=== PATIENT | female | born 1960 | race Caucasian/White ===

== ENCOUNTER 2025-03-10 10:11 | Outpatient (AMB) | payer BC, SELFPAY ==
--- NOTE | 2025-03-10 10:23 | A.OFFPC_ITS ---
Vital Signs 03/10/25 10:25 Height 5 ft 4 in Weight 207 lb BMI 35.5 BP 124/76 Blood Pressure Location Rt brachial Position Sitting Respiration 14 Pulse 76 Pulse Source Pulse Oximeter Pulse Oximetry (%) 97 Oxygen Delivery Method Room Air Intake Visit Reasons: Weight loss and Edema Intake Note: New patient visit. Discuss weight loss and edema in both ankles. Neurobiologist Required: No Allergies sumatriptan [From Imitrex] Allergy (Intermediate, Verified 03/10/25 10:27) vomitted Medication List - Last Reconciled 03/10/25 by Dolores Galicia PA-C allopurinol 200 mg PO DAILY B-complex with vitamin C 1 cap PO DAILY colchicine mg PO conjugated estrogens (Premarin) 0.625 mg PO DAILY lisinopril 10 mg PO DAILY [mini fish oil 1290 PO] multivitamin 1 tab PO DAILY vitamin D3-vitamin K2 250 mcg (10,000 unit)-45 mcg 1 cap PO DAILY Tobacco use date assessed: 03/10/25 Fall risk assessment: No Falls in past year Last assessed Fall Risk: 03/10/25 Dental Screening Dental Screen Date: 03/10/25 Did you have a dental visit in the last 12 months?: No Did you have a dental problem in the last 6 months where you did not have access to dental care?: No Was dental information given to patient?: Patient has dentist HPI Weight loss and Edema HPI Details Patient is a 64-year-old female who presents today to establish care. She is transferring from [facility] where she previously saw me. No notes available today. She has a history of hypertension, prediabetes, CKD, kidney stones, anemia, gout, obesity. CV: Blood pressure today in the office is 124/76. She is on lisinopril 10 mg daily. She uses furosemide as needed for swelling. States that cholesterol has been diet controlled. Last LDL at [facility] was 103. Endo: Last labs showed A1c of 5.7. Heme: Follows with Dr. Ac for anemia. Nephro: She did see nephrology, Dr. Avery, following an maria g from being on keto diet and possibly due to stones. Urology: hx of stones, has not seen urology in over 30 years. Psych: Was trialed on trazodone in the past to see if that would help with insomnia which she felt was related to her menopause. Mammo: UTD General Internal Medicine Physician: UTD Bone density: was normal 3 years ago Colonoscopy: completed 2020-due in 2030 [facility] Medical History (Updated 03/10/25 @ 11:08 by Dolores Galicia PA-C) Umbilical hernia Surgical History (Updated 03/10/25 @ 10:47 by Rosy Lopes CMA) Hx of cholecystectomy Family History (Updated 03/10/25 @ 10:49 by Rosy Lopes CMA) Mother HTN (hypertension) Father HTN (hypertension) Maternal Grandmother Diabetes Social History Housing: House Alcohol intake: current Patient Tobacco Use Status: Never used Tobacco e-Cigarette/Vaping Use: Never Used Second Hand Smoke Exposure: No service: No Current occupational status: retired Cognitive needs: No Hearing needs: No Vision needs: No Questionnaire PHQ-9 Over the last 2 weeks, how often have you been bothered by any of the following problems? 1. Little interest or pleasure in doing things: not at all 2. Feeling down, depressed, or hopeless: not at all 3. Trouble falling or staying asleep, or sleeping too much: nearly every day 4. Feeling tired or having little energy: more than half the days 5. Poor appetite or overeating: nearly every day 6. Feeling bad about yourself - or that you are a failure or have let yourself or your family down: nearly every day 7. Trouble concentrating on things, such as reading the newspaper or watching television: not at all 8. Moving or speaking so slowly that other people could have noticed. Or the opposite - being so fidgety or restless that you have been moving around a lot more than usual: not at all 9. Thoughts that you would be better off or of hurting yourself in some way: not at all Total score: 11 Depression Screening Interpretation: Positive Depression Screening Done: Yes Source: Developed by Drs. Edgardo Hough, Whit Diaz, David Amos and colleagues, with an educational allison from [employer]. Thrive Questionnaire Date Thrive assessed: 03/03/25 I am a: Patient What is your living situation today?: I have a steady place to live Within the past 12 months, did the food you bought not last and you didn't have the money to get more?: Never true Within the past 12 months, did you worry whether your food would run out before you got money to buy more?: Never true Do you have trouble paying for medicines?: No Do you have trouble getting transportation to medical appointments?: Yes Do you have trouble paying your heating and electricity bill?: No Do you have trouble taking care of your child, family member or friend?: No Do you have trouble with day-to-day activities such as bathing, preparing meals, shopping, managing finances, etc.?: No Are you currently unemployed and looking for a job?: No Are you interested in more education?: Yes Please select the resources that you would like help with: None Currently or been in a relationship where the following occur: No concerns reported THRIVE Score: 1 AUDIT C Alcohol Use Questionnaire (AUDIT-C) 1. How often do you have a drink containing alcohol?: Monthly or less 2. How many drinks containing alcohol do you have on a typical day when you are drinking?: 1 or 2 3. How often do you have six or more drinks on one occasion?: Never Total Score: 1 BAKARI-7 AMB Questionnaire BAKARI-7 Date BAKARI - 7 assessed: 03/10/25 Feeling nervous, anxious, or on edge: 0 = Not at all Not being able to stop or control worryin = Not at all Worrying too much about different things: 0 = Not at all Trouble relaxin = Not at all Being so restless that it is hard to sit still: 0 = Not at all Becoming easily annoyed or irritable: 2 = More than half the days Feeling afraid as if something awful might happen: 0 = Not at all Total BAKARI-7 score (0-4 normal; 5-9 mild; 10-14 moderate; 15-21 severe): 2 Source: Developed by Drs. Edgardo Hough, Whit Diaz, David Amos and colleagues, with an educational allison from [employer]. BAKARI-7 Assessment Billing BAKARI-7 Assessment Tool: BAKARI-7 Assessment 05331 Physical exam (Primary Care) BMI result Body Mass Index 35.5 PHQ-9: PHQ-9 Score PHQ-9: Total score 11 03/10/25 10:24 Depression Screening Interpretation: Positive Thrive Assessment: Date of Thrive Assessment Date Thrive assessed 03/03/25 03/10/25 10:24 Currently or been in a relationship where the following occur: No concerns reported Const Orientation/consciousness: patient oriented x3 HENMT Ears: hearing grossly normal bilaterally Neck Thyroid: Thyroid normal Lymphatic: no lymphadenopathy noted Resp Auscultation: clear to auscultation bilaterally Cardio Rate: regular rate Rhythm: regular rhythm Heart sounds: S1 normal heart sound present and S2 normal heart sound present GI Inspection: Yes normal to inspection Palpation (GI): Soft to palpation and Other GI palpation findings present (nontender, no cva tenderness) Auscultation: normoactive bowel sounds Rectal Exam - Female: deferred Skin General skin exam: no rashes or lesions noted Neuro General: patient oriented x3, gait normal and no focal motor deficits Coding Level of Care Code Est Pt Level 4 (59793) Complex EM visit Add On G2211 Diagnoses CKD (chronic kidney disease) stage 3, GFR 30-59 ml/min N18.30 HTN (hypertension) I10 Prediabetes R73.03 Hx of renal calculi Z87.442 Severe obesity (BMI 35.0-35.9 with comorbidity) E66.01; Z68.35 Additional Codes BAKARI-7 Assessment Billing - BAKARI-7 Assessment Tool: BAKARI-7 Assessment 34900 ([id number]) Assessment & Plan Assessment & Plan (1) CKD (chronic kidney disease) stage 3, GFR 30-59 ml/min: Code(s): N18.30 - Chronic kidney disease, stage 3 unspecified Category: Medical Plan: Referral to nephrology. She wants a 2nd opinion. (2) HTN (hypertension): Code(s): I10 - Essential (primary) hypertension Category: Medical Plan: WNL. Continue current regimen. (3) Prediabetes: Code(s): R73.03 - Prediabetes Category: Medical Plan: A1c ordered. We will follow up pending test results (4) Hx of renal calculi: Code(s): Z87.442 - Personal history of urinary calculi Category: Medical Plan: Ultrasound ordered. UA ordered. (5) Severe obesity (BMI 35.0-35.9 with comorbidity): Code(s): E66.01 - Morbid (severe) obesity due to excess calories; Z68.35 - Body mass index [BMI] 35.0-35.9, adult Category: Medical Plan: will start phentermine Orders: Orders Vitamin B12 and Folate Today I10 - Essential (primary) hypertension, N18.30 - Chronic kidney disease, stage 3 unspecified, R73.03 - Prediabetes, Z87.442 - Personal history of urinary calculi Hemoglobin A1c Today I10 - Essential (primary) hypertension, N18.30 - Chronic kidney disease, stage 3 unspecified, R73.01 - Impaired fasting glucose, R73.03 - Prediabetes, Z87.442 - Personal history of urinary calculi XR DEXA axial skeleton Today Z78.0 - Asymptomatic menopausal state US renal BI Today N18.30 - Chronic kidney disease, stage 3 unspecified, Z87.442 - Personal history of urinary calculi Complete Blood Count Auto Diff Today I10 - Essential (primary) hypertension, N18.30 - Chronic kidney disease, stage 3 unspecified, R73.03 - Prediabetes, Z87.442 - Personal history of urinary calculi Comprehensive Sandy. Panel Fast Today I10 - Essential (primary) hypertension, N18.30 - Chronic kidney disease, stage 3 unspecified, R73.03 - Prediabetes, Z87. 442 - Personal history of urinary calculi Lipid Panel Today I10 - Essential (primary) hypertension, N18.30 - Chronic kidney disease, stage 3 unspecified, R73.03 - Prediabetes, Z87.442 - Personal history of urinary calculi UA CC w/rflx Micro + Cult Today I10 - Essential (primary) hypertension, N18.30 - Chronic kidney disease, stage 3 unspecified, R73.03 - Prediabetes, Z13.220 - Encounter for screening for lipoid disorders, Z87.442 - Personal history of urinary calculi TSH reflex Free T4 Today I10 - Essential (primary) hypertension, N18.30 - Chronic kidney disease, stage 3 unspecified, R73.03 - Prediabetes, Z87.442 - Personal history of urinary calculi Microalbumin, Random (w Creat) Today I10 - Essential (primary) hypertension, N18.30 - Chronic kidney disease, stage 3 unspecified, R73.03 - Prediabetes, Z87.442 - Personal history of urinary calculi Referrals Nephrology Referral N18.30 - Chronic kidney disease, stage 3 unspecified, Z87.442 - Personal history of urinary calculi Medications: New lisinopril 10 mg PO DAILY 90 tabs 3RF phentermine must administer 2 hours after breakfast 15 mg PO DAILY 30 caps 5RF furosemide 20 mg PO Q OTHER DAY 30 tabs 5RF
[2025-03-10 10:25] VITALS: BP 124/76; PULSE 76; RESP 14; O2SAT 97; BMI 35.5
--- OUTSIDE RECORDS SUMMARY | 2025-03-10 10:38 | XMS_ITS ---
Author Organization [facility] Address [address] [address] Care Team Providers Care Forming Yardage Control Operator Name Role Phone Lissette Stevens Primary Care Provider CRUZ De La Cruz [phone] REASON FOR VISIT eClinicalMobile: ePrescription Medications Medication SIG (Take, Route, Fr equency, Duration) Notes Start Date End Date Status Allopurinol 300 MG TAKE 1 TABLET BY MARIE TH EVERY DAY FOR 30 DAYS for 90 Active Encounters Encounter Location Date Provider Diagnosis [facility] [address] [address] 12/25/2023 CRUZ DWYER Plan Of Treatment Medication Medication Name Sig Start Date Stop Date Notes Allopurinol 300 MG TAKE 1 TABLET BY MARIE TH EVERY DAY FOR 30 DAYS for 90 Progress Notes * IFEANYILisethJimboOB: (63 yo F)Acc No.[id number]:12/25/2023 Patient:?Aster SUGGS :1960???Age:63 Y???Sex:Female Address:[address] [facility] [place] [address] * Refills? Refill Allopurinol Tablet, 300 MG, 90 Tablet, TAKE 1 TABLET BY MOUTH EVERY DAY FOR 30 DAYS, 90, Refills=0 * true * Date:? Generated for Aleciai denis/Fataylerg/eTransmitting on:?03/10/2025 10:38 AM EDT
--- OUTSIDE RECORDS SUMMARY | 2025-03-10 10:38 | XMS_ITS ---
Author Organization [facility] Address [address] [address] Care Team Providers Care Candy Starch Mold Printer Name Role Phone Lissette Stevens Primary Care Provider CRUZ De La Cruz [phone] REASON FOR VISIT refill request Medications Medication SIG (Take, Route, Fr equency, Duration) Notes Start Date End Date Status Allopurinol 300 MG TAKE 1 TABLET BY MARIE TH EVERY DAY Orally Once a day for 90 days Ac tive Encounters Encounter Location Date Provider Diagnosis [facility] [address] [address] 01/20/2024 CRUZ DWYER Plan Of Treatment Medication Medication Name Sig Start Date Stop Date Notes Allopurinol 300 MG TAKE 1 TABLET BY MARIE TH EVERY DAY Orally Once a day for 90 days Progress Notes * Liseth SUGGSJimboOB: (63 yo F)Acc No.[id number]:01/20/2024 Patient:?Aster SUGGS :1960???Age:63 Y???Sex:Female Address:[place] [address] * Refills? Refill Allopurinol Tablet, 300 MG, Orally, 90, TAKE 1 TABLET BY MOUTH EVERY DAY, Once a day, 90 days, Refills=1 * true * Date:? Generated for Aleciai denis/Jenniferg/eTransmitting on:?03/10/2025 10:37 AM EDT
--- OUTSIDE RECORDS SUMMARY | 2025-03-10 10:38 | XMS_ITS | Clinical Summary ---
Author Organization [facility] Address [address] [place] [address] Care Team Providers Care Math Tutor Name Role Phone Abdi Faye MD Primary Care Provide r Allergies Active Allergy Reactions Criticality Noted Date Comments Avocado Rash,Other (See Comments) Low 12/09/2023 Edema of face Sumatriptan Nausea And Vomiting 03/26/2017 Medications Medication Sig Dispensed Refills Start Date End Date Status Multiple Vitamins-Minerals (MULTIVITAMIN ADULT) TABS Take 1 tablet by mouth. 0 Active allopurinol (ZYLOPRIM) 100 MG tablet Take 1 tablet (100 mg total) by mouth 2 (two) times a day. 0 Active estrogens, conjugated, (Premarin) 0.625 MG tablet Take by mouth. Take daily for 21 days then do not take for 7 days. 0 Active Cholecalciferol (Vitamin D3) 50 MCG (2000 UT) capsule Take 2,000 Units by mouth daily. 0 Active Anderson-3 Fatty Acids (Fish Oil) 1360 MG CAPS Take by mouth. 0 Active Active Problems No known active problems Family History Medical History Relation Name Comments Hypertension Brother Cancer Father Hypertension Father Hypertension Sister Osteoarthritis Sister Relation Name Status Comments Brother Father Sister Social History Tobacco Use Types Packs/Day Years Used Date Smoking Tobacco: Never Smokeless Tobacco: Never Tobacco Cessation:Counseling Given: Not Answered Alcohol Use Standard Drinks/Week Comments Yes 0 (1 standard drink = 0.6 oz pur e alcohol) Sex and Gender Information Value Date Recorded Sex Assigned at Female 11/19/2023 9:46 AM EST Gender Identity Not on file Sexual Orientation Not on file Job Start Date Occupation Industry Not on file Not on file Not on file Last Filed Vital Signs Vital Sign Reading Time Taken Comments Blood Pressure 137/69 07/30/2024 11:06 AM EDT Pulse 79 07/30/2024 11:06 AM EDT Temperature 36.6 ??C (97.8 ??F) 07/30/2024 11:06 AM E DT Respiratory Rate - - Oxygen Saturation 99% 07/30/2024 11:06 AM EDT Inhaled Oxygen Concentration - - Weight 86.6 kg (191 lb) 07/30/2024 11:06 AM EDT Height 162.6 cm (5' 4 ) 12/25/2023 1:16 PM EST Body Mass Index 32.79 12/25/2023 1:16 PM EST Plan of Treatment Health Maintenance Due Date Last Done Comments Hepatitis C Screening 1960 Depression Screening 1972 Preventative Health Evaluation 1978 DTap / Tdap / Td (1 - Tdap) 1979 Cervical Cancer Screening (Pap Smear) 1981 Colon Cancer Screening (Colonoscopy) 2005 Breast Cancer Screening (Mammogram) 2010 Shingrix-Zoster Vaccine (1 of 2) 2010 COVID-19 Vaccine (2 - season) 2024 01/23/2021 Influenza Vaccine (#1) 2024 , 08/02/2023, 08/14/2022, Additional history exists Pneumococcal Vaccine (1 of 1 - PCV) 2025 RSV Adult > 60+ Yrs or (1 - 1-dose 75+ series) 2035 Hepatitis B Vaccines Aged Out No long er eligible based on patient's age to complete this topic Pneumococcal Vaccine Aged Out No long er eligible based on patient's age to complete this topic RSV Ped < 20 months Aged Out No longe r eligible based on patient's age to complete this topic Care Teams Math Tutor Relationship Specialty Start Date End Date Abdi Faye MD [address] [facility] [place] [address] PCP - General Internal Medicine 07/30/24
--- OUTSIDE RECORDS SUMMARY | 2025-03-10 10:38 | XMS_ITS | Clinical Summary ---
Author Organization [facility] Address [address] [address] Phone Care Team Providers Care Slip Caster Name Role Phone Abdi Faye MD Primary Care Provide r Allergies Active Allergy Reactions Criticality Noted Date Comments Avocado Rash Low 12/09/2023 Other Reaction(s): Other (See Comments) Edema of face Sumatriptan Nausea And Vomiting 03/26/2017 Medications allopurinol (ZYLOPRIM) 100 MG tablet Take 300 mg by mouth in the morning and 300 mg in the evening. Active Multiple Vitamin (Multivitamin Adult) tablet Take 1 tablet by mouth 1 (one) time each day Active omega-3 (FISH OIL) 1000 MG capsule Take 1,000 mg by mouth 1 (one) time each day Active estrogen, conjugated,-med roxyPROGESTERon e (PREMPRO) 0.45-1.5 MG per tablet Take 1 tablet by mouth 1 (one) time each day Active colchicine 0.6 MG tablet Take 0.6 mg by mouth 1 (one) time each day Active tamsulosin (FLOMAX) 0.4 MG 24 hr capsule PRN -use 1 capsule every night when trying to pass a kidney stone 30 capsule 1 01/19/2024 Active Active Problems Problem Noted Date Diagnosed Date Nephrocalcinosis 01/19/2024 Staghorn calculus 01/19/2024 Acute nontraumatic kidney injury, not otherwise specified 01/19/2024 Stage 3a chronic kidney disease 01/19/2024 Gout, not otherwise specified 01/18/2024 Hypertension 01/18/2024 Personal history of kidney stones 01/18/2024 Dyslipidemia 01/18/2024 Renal stone 03/26/2017 Social History Tobacco Use Types Packs/Day Years Used Date Smoking Tobacco: Never Smokeless Tobacco: Never Tobacco Cessation:Counseling Given: Not Answered Alcohol Use Standard Drinks/Week Comments Yes 0 (1 standard drink = 0.6 oz pure alcohol) 1-2 times per wk(Beer, wine and liquor) Comments Unknown Sex and Gender Information Value Date Recorded Sex Assigned at Not on file Legal Sex Female 9:25 AM EDT Gender Identity Not on file Sexual Orientation Not on file Last Filed Vital Signs Vital Sign Reading Time Taken Comments Blood Pressure 112/78 01/19/2024 10:14 AM EDT Pulse 80 01/19/2024 10:14 AM EDT Temperature - - Respiratory Rate - - Oxygen Saturation 96% 01/19/2024 10:14 AM EDT Inhaled Oxygen Concentration - - Weight 85.3 kg (188 lb) 01/19/2024 10:14 AM EDT Height - - Body Mass Index - - Plan of Treatment Health Maintenance Due Date Last Done Comments Breast Cancer Screening 1960 Pneumococcal Vaccine: 50+ Years (1 of 2 - PCV) 1979 Colorectal Cancer Screening: Annual FOBT 2009 Colorectal Cancer Screening: Colonoscopy 2009 Colorectal Cancer Screening: Sigmoidoscopy 2009 Influenza Vaccine (Season Ended) 2025 08/02/2023, 08/14/2022, 11/07/2021 Hepatitis B Vaccine Aged Out No longe r eligible based on patient's age to complete this topic Insurance [facility] Care Teams Slip Caster Relationship Specialty Start Date End Date Abdi Faye MD [address] [place] [id number] PCP - General Internal Medicine 07/28/24
--- OUTSIDE RECORDS SUMMARY | 2025-03-10 10:38 | XMS_ITS | Patient Health Record ---
Author Organization [facility] Address [address] [facility] [address] [place] [address] Care Team Providers Care Data Entry Analyst Name Role Phone Lissette Stevens Primary Care Provider Unavailabl e Allergies Allergen (clinical drug ingredient) Drug/Non Drug Allergy documented on EMR Reaction Allergy Type Onset Date Status sumatriptan Imitrex vomiting Drug Allergy Activ e Reason For Referral No Information Medications Medication SIG (Take, Route, Frequency, Duration) Notes Start Date End Date Status hydroCHLOROthiazide 25 MG 1 tablet in th e morning Orally Once a day Active Lactobacillus - as directed Orally Not-Taking Van Orin 3 1000 MG 1 capsule Orally Once a day Active Estrogens Conjugated 0.45 MG 1 tablet Or ally Once a day Active Indomethacin 50 MG 1 capsule with food or milk Orally Twice a day for 30 days Active Vitamin D Active Allopurinol 300 MG TAKE 1 TABLET BY MOUTH EVERY DAY Orally Once a day for 90 days Active Ferrous Sulfate 325 (65 Fe) MG TAKE 1 TABLET BY MOUTH EVERY DAY FOR 30 DAYS for 90 Active Colchicine 0.6 MG PLEASE TAKE ONE TABLET ORALLY TWICE A DAY FOR 5 DAYS for 5 Active Multi Vitamin/Minerals - as directed Orally Active Naproxen 500 MG 1 tablet with food or milk as needed Orally every 12 hrs Active predniSONE 10 MG 1 tablet Orally Once a day Not-Taking Lisinopril 20 MG 1 tablet Orally Once a day Active Problems Problem Type SNOMED Code ICD Code Onset Dates Problem Status W/U Status Risk Notes Problem [id number] Other specified peripheral vascular diseases (I73.89) Active confirmed Problem [id number] Inflammatory arthritis (M19.90) Active confirmed Plan Of Treatment Pending Test Test Name Order Date X ray : Foot, left 3v 09/25/2023 X ray : Foot, right 3v 09/25/2023 DRAIN/INJECT, SMALL JOINT/BURSA 12/07/20 23 Medications Administered Medication Instructions Date of Administration Dosage Notes dexAMETHasone Sod Phosphate PF 09/25/2023 0.5 m L Kenalog 09/25/2023 0.5 mL Medical (General) History Medical History History ICD Code diverticula of colon severe obesity with comorbidity hyperlipidemia prediabetes primary osteoarthritis of both knees gouty arthritis of left great toe swelling of lower extremity positive OTILIO (antinuclear antibody) hypertension kidney stones meniscus tear right knee + COVID 03/2022 COVID vaccinated X 3 ([employer]) heel spur onychomycosis hypertension back pain circulation issues Surgical History Surgery Date(Month/Year) cholecystectomy umbilical hernia repair Hospitalization History Reason Date(Month/Year) vaginal delivery (girl) 1997 vaginal delivery (girl) 1988 vaginal delivery (boy) 1985
--- OUTSIDE RECORDS SUMMARY | 2025-03-10 10:38 | XMS_ITS ---
Author Organization [facility] Address [address] [address] Care Team Providers Care Linux System Admin Name Role Phone Lissette Stevens Primary Care Provider CRUZ De La Cruz [phone] REASON FOR VISIT Medical Records Encounters Encounter Location Date Provider Diagnosis [facility] [address] [address] 03/02/2024 CRUZ DWYER Plan Of Treatment No Information Progress Notes * Liseth SUGGSJimboOB: 1 (63 yo F)Acc No.[id number]:03/02/2024 Patient:?Aster SUGGS :1960???Age:63 Y???Sex:Female Address:[place] [address] * true * Date:? Generated for Jitendra barrios/Tomeka/eTransmitting on:?03/10/2025 10:38 AM EDT
--- OUTSIDE RECORDS SUMMARY | 2025-03-10 10:38 | XMS_ITS | Clinical Summary ---
Author Organization [facility] ity Address [address] [place] [address] Care Team Providers Care [employer] Supervisor Name Role Phone Abdi Faye MD Primary Care Provide r Immunizations Name Administration Dates Next Due JNJ/Anuj SARS-CoV-2 COVID -19, vector-nr, rS-Ad26, preservative free 01/23/2021 Surgical History Surgery Date Site/Laterality Comments CHOLECYSTECTOMY 2003 PROCEDURE: HISTORICAL CHOLECYSTECTOMY UMBILICAL HERNIA REPAIR 2009 PROCEDURE: LAP UMBILICAL HERNIA REPAIR CHOLECYSTECTOMY PROCEDURE:CHOLECYSTECTOMY UMBILICAL HERNIA REPAIR PROCEDURE:UMBILICAL HERNIA REPAIR Medical History Medical History Date Comments HTN (hypertension) 03/26/2017 DX:HTN (hyper tension) Tear meniscus knee 03/26/2017 DX:Tear menis cus knee; COMMENT: Right , completed PT and pain improved Kidney stones 03/26/2017 DX:Kidney stones High blood pressure DX:High bloo d pressure Osteoarthritis DX:Osteoarthriti s Hx of steroid therapy DX:Hx of s teroid therapy Family History Medical History Relation Name Comments Multiple sclerosis Aunt Hypertension Brother 1 Other: calf pain and swelling Brother 1 Hypertension Brother 2 Cancer Father Hypertension Father Prostate cancer Father Diabetes Maternal Grandmother Arthritis Sister 1 RA Hypertension Sister 1 Hypertension Sister 2 Osteoarthritis Sister 2 Breast cancer Neg Hx Relation Name Status Comments Aunt Brother 1 Alive Brother 2 Daughter 1 Alive Daughter 2 Alive Father Maternal Grandmother Mother Alive Sister 1 Alive Sister 2 Son Alive Social History Tobacco Use Types Packs/Day Years Used Date Smoking Tobacco: Never Smokeless Tobacco: Never Alcohol Use Standard Drinks/Week Comments Yes 0 (1 standard drink = 0.6 oz pur e alcohol) Comments Unknown Sex and Gender Information Value Date Recorded Sex Assigned at Not on file Legal Sex Female 11:45 AM EST Gender Identity Not on file Sexual Orientation Not on file Obstetrics History Last Filed Vital Signs Vital Sign Reading Time Taken Comments Blood Pressure 137/69 07/30/2024 11:06 AM EDT Sitting Left arm Pulse 79 07/30/2024 11:06 AM EDT Temperature - - Respiratory Rate - - Oxygen Saturation - - Inhaled Oxygen Concentration - - Weight 86.6 kg (191 lb) 07/30/2024 11:0 6 AM EDT Height 162.6 cm (5' 4 ) 12/25/2023 1:16 PM EST Body Mass Index 32.79 12/25/2023 1:16 PM EST Plan of Treatment Health Maintenance Due Date Last Done Comments DTaP,Tdap,and Td Vaccines (1 - Tdap) 1979 Pneumococcal Vaccine: 50+ Years (1 of 1 - PCV) 2010 Zoster Vaccines (1 of 2) 2010 Breast Cancer Screening 06/21/2019 06/21/2017 Cholesterol Screening (Lipid Panel) 09/28/2022 Colorectal Cancer Screening: Colonoscopy 09/28/2022 Depression Screening 09/28/2022 HIV Screening 09/28/2022 Hepatitis C Screening 09/28/2022 Social Influencers of Health Screening 09/28/2022 Hypertension/CHF/CAD Annual BMP Blood Test 09/29/2022 COVID-19 Vaccine (3 - 2023-2 5 season) 2024 10/07/2021, 01/23/2021 Cervical Cancer Screening: P ap Smear 04/24/2025 04/24/2022 Influenza Vaccine (Season Ended) 2025 08/02/2023, 08/14/2022, 11/07/2021 RSV Immunization Adult Patients (1 - 1-dose 75+ series) 2035 HIB Vaccines Aged Out No longer eligi ble based on patient's age to complete this topic HPV Vaccines Aged Out No longer eligi ble based on patient's age to complete this topic Hepatitis A Vaccines Aged Out No long er eligible based on patient's age to complete this topic Hepatitis B Vaccines Aged Out No long er eligible based on patient's age to complete this topic IPV Vaccines Aged Out No longer eligi ble based on patient's age to complete this topic MMR Vaccines Aged Out No longer eligi ble based on patient's age to complete this topic Meningococcal ACWY Vaccine Aged Out N o longer eligible based on patient's age to complete this topic Meningococcal B Vaccine Aged Out No l onger eligible based on patient's age to complete this topic Pneumococcal Vaccine: Pediatrics (0 to 5 Years) and At-Risk Patients (6 to 64 Years) Aged Out No longer eligible b ased on patient's age to complete this topic RSV Immunization Patients Under 20 months Aged Out No longer eligible b ased on patient's age to complete this topic Varicella Vaccines Aged Out No longer eligible based on patient's age to complete this topic Procedures Procedure Name Priority Date/Time Associated Diagnosis Comments PAP SMEAR Routine 04/24/2022 SCR MAMMO BI INCL CAD Routine 06/21/2017 11:44 AM EDT Encounter for gynecological examination (general) (routine) without abnormal findings from Last 3 Months or Most Recently Relevant to Health Maintenance Results * Pap smear (04/24/2022) 04/24/2022 Narrative HISTORICAL TESTING LAB RESULTING AGENCY - 04/30/2022 4:41 PM EDT [id number] THINPREP PAP, IMAGED: NEGATIVE FOR SQUAMOUS INTRAEPITHELIAL LESION AND MALIGNANCY . ADRIEL FRANCISCO(ASCP) (CASE ELECTRONICALLY SIGNED 04 30 2022) RESULT OF APTIMA HIGH RISK HPV ASSAY: HIGH RISK HPV: ??NEGATIVE (SEROTYPES 16,18,31,33,35,39,45,51,52,56,58,59,66,68) COMPLETED ON 2022-04-26 ADEQUACY: SATISFACTORY ENDOCERVICAL/TRANSFORMATION ZONE COMPONENT PRESENT. SOURCE: THINPREP PAP HPV ANY DX: ??REFLEX 16 AND 18, CERVICAL, IMAGED CLINICAL INFORMATION: HPV ANY DIAGNOSIS. PT IS POST MENOPAUSAL, Z12.4 Jessica Zepeda DO LAB CYTOLOGY ORDERABLES Final Result HISTORICAL TESTING LAB RESULTING AGENCY * SCR MAMMO BI INCL CAD (06/21/2017 11:44 AM EDT) Anatomical Region Laterality Modality Radiographic Abril ging 04/29/2017 1:38 PM EDT Narrative 06/24/2017 10:17 AM EDT This is a summary report. The complete report is available in the patient's medical record. If you cannot access the medical record, please contact the sending organization for a detailed fax or copy. Full field digital screening mammography, reviewed with CAD and compared to previous. ??The breasts are composed of fatty and fibroglandular tissue. Overall, the parenchymal pattern appears stable bilaterally, dating back to at least 2013. No suspicious mass, architectural distortion or suspicious calcifications are identified. IMPRESSION: : No mammographic evidence of malignancy. BIRADS 1-Negative; N. 5 year breast cancer risk assessment 1.4 % Lifetime breast cancer risk assessment 8.9 % Breast cancer risk category Low (<15%) Procedure Note Jamaica Varela, DO - 11/21/2023 This is a summary report. The complete report is available in thepatient's medical record. If you cannot access the medical record, pleasecontact the sending organization for a detailed fax or copy. Full field digital screening mammography, reviewed with CAD and comparedto previous. The breasts are composed of fatty and fibroglandular tissue.Overall, the parenchymal pattern appears stable bilaterally, dating backto at least 2013. No suspicious mass, architectural distortion orsuspicious calcifications are identified. IMPRESSION: : No mammographic evidence of malignancy. BIRADS 1-Negative; N. 5 year breast cancer risk assessment 1.4 % Lifetime breast cancer risk assessment 8.9 % Breast cancer risk category Low (<15%) Jessica Zepeda DO IMG XR PROCEDURES Final Resul t from Last 3 Months or Most Recently Relevant to Health Maintenance Care Teams [employer] Supervisor Relationship Specialty Start Date End Date Abdi Faye MD [address] [place], [place] [address]rosie Ayon [place] PCP - General 08/03/24
--- OUTSIDE RECORDS SUMMARY | 2025-03-10 10:38 | XMS_ITS | Continuity of Care Document ---
Author Organization [facility] Address [address] [facility] [address] [place] [id number] Insurance Providers Payer Plan Claims Address Claims Phone Policy Number Group Number Relation Employer Guarantor Name Guarantor Guarantor Address Guarantor Phone [employer] VI[employer]CA BELLAMYDEJA S Blue Cross Blue Shiel d Of [employer] kit tts [address], [place] [address] tel:[phone] [id number] Self Aster Lloyd 1960 [address] [place] [address] [place]/ [place] /PPO POS 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 Metabolic Panel (14)[[id number]]?Collected: 12/21/2024 04:58 PM?Specimen Received: 12/21/2024 05:00 AM?Source: [facility] Glucose [016995] 99 mg/dL 70-99 mg/dL BUN [817091] 14 mg/dL 8-27 mg/dL Creatinine [972701] 1.15 mg/dL H 0.57-1.0 0 mg/dL eGFR [557440] 53 mL/min/1.73 L >59 mL/min/1 .73 BUN/Creatinine Ratio [823968] 12 12-28 Sodium [063693] 136 mmol/L 134-144 mmol /L Potassium [497134] 4.7 mmol/L 3.5-5.2 m mol/L Chloride [747563] 98 mmol/L 96-106 mmo l/L Carbon Dioxide, Total [418885] 24 mmol/L 20-29 mmol/L Calcium [137533] 9.2 mg/dL 8.7-10.3 mg /dL Protein, Total [778446] 6.8 g/dL 6.0- 8.5 g/dL Albumin [014893] 4.1 g/dL 3.9-4.9 g/d L Globulin, Total [311521] 2.7 g/dL 1.5 -4.5 g/dL Bilirubin, Total [501694] 0.3 mg/dL 0. 0-1.2 mg/dL Alkaline Phosphatase [735911] 101 IU/L 44-121 IU/L AST (SGOT) [906188] 13 IU/L 0-40 IU/ L ALT (SGPT) [528697] 10 IU/L 0-32 IU/ L Lipid Panel[299148]?Collected: 12/21/2024 04:58 PM?Specimen Received: 12/21/2024 05:00 AM?Source: [facility] Cholesterol, Total [107328] 210 mg/dL H 100-199 mg/dL Triglycerides [669775] 203 mg/dL H 0-149 mg/dL HDL Cholesterol [742401] 73 mg/dL >39 mg/dL VLDL Cholesterol Abdulkadir [715113] 34 mg/dL 5-40 mg/dL LDL Chol Calc ([facility]) [648588] 103 mg/dL H 0-99 mg/dL Albumin/Creatinine Ratio,Uri ne[060425]?Collected: 12/21/2024 04:58 PM?Specimen Received: 12/21/2024 05:00 AM?Source: [facility] Creatinine, Urine [809796] 55.8 mg/dL N ot Estab. mg/dL Albumin, Urine [462849] 76.7 ug/mL Not Estab. ug/mL Alb/Creat Ratio [774661] 137 mg/g creat H 0 -29 mg/g creat Normal: 0 - 29 Moderately i ncreased: 30 - 300 Severely increased: >300 Hemoglobin A1c[320455]?Collected: 12/21/2024 04:58 PM?Specimen Received: 12/21/2024 05:00 AM?Source: [facility] Hemoglobin A1c [660973] 5.7 % H 4.8- 5.6 % . Prediabetes: 5.7 - 6.4 Fariha betes: >6.4 Glycemic control for adults with diabetes: 7.0 C-Peptide, Serum[201220]?Collected: 12/21/2024 04:58 PM?Specimen Received: 12/21/2024 05:00 AM?Source: [facility] C-Peptide, Serum [074905] 3.1 ng/mL 1. 1-4.4 ng/mL C-Peptide reference interval is for fasting patients. fax.pdf Allergies, adverse reactions, alerts No known allergies and adverse reactions Medications No administered medications reported Vital Signs No vital signs reported Social History No smoking Hx information available
== END 2025-03-10 11:17 | disposition home or self-care (01) ==
LOC: HO.HMCFM 10:12
PROVIDERS: PCP Physician Assistant; Visit Provider Physician Assistant
DX: I12.9 Hypertensive chronic kidney disease with stage 1 through stage 4 chronic kidney disease, or unspecified chronic kidney disease (principal); N18.30 Chronic kidney disease, stage 3 unspecified; E66.01 Morbid (severe) obesity due to excess calories; Z68.35 Body mass index [BMI] 35.0-35.9, adult; R73.03 Prediabetes; Z87.442 Personal history of urinary calculi

== ENCOUNTER → 2025-03-10 10:11 | Outpatient (BNVA) | payer BC, SELFPAY | PROVIDERS: PCP Physician Assistant; Visit Provider Physician Assistant | DX: I12.9 Hypertensive chronic kidney disease with stage 1 through stage 4 chronic kidney disease, or unspecified chronic kidney disease (principal); R73.03 Prediabetes; D64.9 Anemia, unspecified; E66.9 Obesity, unspecified; N18.30 Chronic kidney disease, stage 3 unspecified; E66.01 Morbid (severe) obesity due to excess calories; Z68.35 Body mass index [BMI] 35.0-35.9, adult; Z87.442 Personal history of urinary calculi | CPT/HCPCS: 96127 ==

== ENCOUNTER 2025-03-16 08:38 | Outpatient (REF) | payer BC, SELFPAY ==
--- OUTSIDE RECORDS SUMMARY | 2025-03-16 08:58 | XMS_ITS ---
Author Organization [facility] Address [address] [address] Care Team Providers Care Teacher Name Role Phone Lissette Stevens Primary Care Provider CRUZ De La Cruz [phone] REASON FOR VISIT refill request Medications Medication SIG (Take, Route, Fr equency, Duration) Notes Start Date End Date Status Allopurinol 300 MG TAKE 1 TABLET BY MARIE TH EVERY DAY Orally Once a day for 90 days Ac tive Encounters Encounter Location Date Provider Diagnosis [facility] [address] [address] 01/20/2024 CRUZ DWYER Plan Of Treatment Medication Medication Name Sig Start Date Stop Date Notes Allopurinol 300 MG TAKE 1 TABLET BY MARIE TH EVERY DAY Orally Once a day for 90 days Progress Notes * IFEANYILiseth DEL REALJimboOB: (63 yo F)Acc No.[id number]:01/20/2024 Patient:?Aster SUGGS :1960???Age:63 Y???Sex:Female Address:[place] [address] * Refills? Refill Allopurinol Tablet, 300 MG, Orally, 90, TAKE 1 TABLET BY MOUTH EVERY DAY, Once a day, 90 days, Refills=1 * true * Date:? Generated for Aleciai denis/Jenniferg/eTransmitting on:?03/16/2025 08:58 AM EDT
[2025-03-16 11:19] LABS: Appearance Urine Turbid; Color Urine Yellow; Glucose Urine UA Negative (Negative); Leukocyte Esterase Urine Large (3+) (Negative); Nitrite Urine Negative (Negative); UMIC TRIGGER UACC YES; Urine Blood Moderate (2+) (Negative); Urine Ketones Negative (Negative); Urine Protein 100 (2+) mg/dL (Neg-Trace)
[2025-03-16 11:24] LABS: MANUAL DIFF FLAG NO
[2025-03-16 11:28] LABS: Basophils Percent Auto 0.5 % (0-2); Eosinophils Absolute Auto 0.1 X10*3/uL (0.0-0.4); Eosinophils Percent Auto 0.6 % (0-4); Hematocrit 38.9 % (37.0-47.0); Hemoglobin 12.3 g/dl (12.0-16.0); Imm Gran Abs Auto 0.05 X10*3/uL (0.00-0.03); Imm Gran Pct Auto 0.6 % (0.0-0.4); Lymphocytes Absolute Auto 2.1 X10*3/uL (1.2-4.9); Lymphocytes Percent Auto 26.5 % (20-40); Mean Corpuscular HGB Conc 31.6 g/dl (31.0-35.0); Mean Corpuscular Hemoglobin 28.5 pg (27.0-33.0); Mean Corpuscular Volume 90.3 fL (80.0-98.0); Mean Platelet Volume 9.3 fL (9.4-12.3); Monocytes Absolute Auto 0.6 X10*3/uL (0.1-1.2); Monocytes Percent Auto 7.2 % (2-11); Neutrophils Percent Auto 64.6 % (45-73); Platelet Count 340 X10*3/uL (160-400); Red Blood Count 4.31 X10*6/uL (4.20-5.50); Red Cell Distribution Width 14.6 % (11.0-16.0); White Blood Count 7.8 X10*3/uL (4.8-10.8)
[2025-03-16 11:33] LABS: Bacteria Urine 3+ (None Seen); Hyaline Casts Urine >20 /LPF (0-2); UACC Culture Trigger YES; WBC Urine >50 /HPF (0-5)
[2025-03-16 11:39] LABS: Estimated Average Glucose 117 mg/dL; Hemoglobin A1C 127.5709 umol/L; Hemoglobin A1c % 5.7 % (<6.0); Total Hemoglobin (HGBA1C) 3293.9429 umol/L
[2025-03-16 12:05] LABS: Alanine Aminotransferase 12 U/L (0-31); Albumin Level 3.8 g/dL (3.5-5.0); Alkaline Phosphatase 86 U/L (39-117); Anion Gap 11 (12-20); Aspartate Amino Transferase 19 U/L (5-31); Bilirubin Total 0.3 mg/dL (0.0-1.0); Blood Urea Nitrogen 17 mg/dL (9-16); Calcium 8.9 mg/dL (8.4-10.2); Carbon Dioxide 27 mmol/L (22-29); Chloride 103 mmol/L (96-108); Cholesterol 195 mg/dL (<200); Estimated Glomerular Filt Rate 45; Glucose Fasting 98 mg/dL (60-99); HDL Cholesterol 63 mg/dL (>40); LDL Cholesterol Calculated 91 mg/dL (<100); Potassium 4.3 mmol/L (3.3-5.1); Sodium 137 mmol/L (135-145); TSH reflex Free T4 1.02 uIU/mL (0.32-4.0); Total Protein 6.9 g/dL (6.5-8.0); Triglycerides 207 mg/dL (<150)
[2025-03-16 12:31] LABS: Creatinine Urine 59.89 mg/dL; Microalbum/Creatinine Ratio Ur 320.5 ug/mg cr (<30)
[2025-03-16 12:34] LABS: Vitamin B12 423 pg/mL (200-900)
== END 2025-03-16 08:39 | disposition home or self-care (01) ==
LOC: HO.WFDLDS 08:38
PROVIDERS: Visit Provider Physician Assistant
DX: N18.30 Chronic kidney disease, stage 3 unspecified (principal); R73.01 Impaired fasting glucose; I10 Essential (primary) hypertension; Z87.442 Personal history of urinary calculi; R73.03 Prediabetes
CPT/HCPCS: 36415; 80053; 80061; 81001; 82043; 82570; 82607; 82746; 83036; 84443; 85025; 87086; 87088; 87186

== ENCOUNTER 2025-04-13 11:14 | Outpatient (REF) | payer BC, SELFPAY ==
--- NOTE | ~2025-04-13 | US_ITS ---
CLINICAL HISTORY: N18.30 - Chronic kidney disease, stage 3 unspecified US renal Comparison: None Findings: Right kidney 12.0 cm length. Left kidney 12.3 cm length. Multiple nonobstructing renal stones. No bilateral hydronephrosis. Normal bilateral renal echogenicity. Impression: Nonobstructing bilateral renal stones This document has been electronically signed by: Gold Thompson MD on 04/13/2025 22:15:08
--- OUTSIDE RECORDS SUMMARY | 2025-04-13 13:22 | XMS_ITS | Encounter Summary ---
Author Organization [facility] Address [address] [place] [address] Care Team Providers Care Director Of Safety Name Role Phone Sarah Garrett MD Primary Care Provider Amie Feng MD Primary [facility] Primary Care Provider Lissette Lanier MD Primary Care Provider [phone] [facility], Pcp Primary Care Provider Santosh alvarado Encounter Details Date Type Department Care Team Description 11/16/2019 Pt. Non Urgent Medical Question Rheumatology - [address] [address] Loc Sanchez MD Social History Tobacco Use Types Packs/Day Years Used Date Smoking Tobacco: Never Smokeless Tobacco: Never Alcohol Use Standard Drinks/Week Comments Yes 0 (1 standard drink = 0.6 oz pur e alcohol) occ Sex Assigned at Date Recorded Not on file Job Start Date Occupation Industry Not on file Not on file Not on file documented as of this encounter Plan of Treatment Not on file documented as of this encounter Visit Diagnoses Not on filedocumented in this encounter Care Teams Director Of Safety Relationship Specialty Start Date End Date Sarah Garrett MD PCP - General Internal Medicine 01/13/18 12/07/20 Amie Paige MD PCP - General Internal Medicine 12/08/20 05/02/22 [facility], Pcp PCP - General Internal Medicine 05/03/22 06/16/22 Lissette Stevens MD [address] [place] [address] PCP - General Internal Medicine 06/17/22 10/29/23 [facility], Pcp PCP - General Internal Medicine 10/30/23 documented as of this encounter
== END 2025-04-13 11:15 | disposition home or self-care (01) ==
LOC: HO.HMGCX 11:14
PROVIDERS: PCP Physician Assistant; Visit Provider Physician Assistant
DX: N18.30 Chronic kidney disease, stage 3 unspecified (principal); Z87.442 Personal history of urinary calculi
CPT/HCPCS: 76775

== ENCOUNTER → 2025-04-13 11:17 | Outpatient (BNV) | payer BC, SELFPAY | PROVIDERS: PCP Physician Assistant; Visit Provider Radiology Diagnostic Radiology | DX: N20.0 Calculus of kidney (principal) | CPT/HCPCS: 76775 ==

== ENCOUNTER 2025-04-14 11:01 | Outpatient (AMB) | payer BC, SELFPAY ==
--- NOTE | 2025-04-14 11:22 | MHC.PC.OV ---
Vital Signs 04/14/25 11:25 Height 5 ft 4 in Weight 207 lb 8 oz BMI 35.6 BP 130/88 Blood Pressure Location Rt brachial Position Sitting Respiration 14 Pulse 83 Pulse Source Pulse Oximeter Pulse Oximetry (%) 98 Oxygen Delivery Method Room Air Intake Visit Reasons: med check Intake Note: Follow up medication. Had ultrasound yesterday Allergies sumatriptan (From Imitrex) Allergy (Intermediate, Verified 04/14/25 13:39) vomitted Medication List - Last Reconciled 04/14/25 by Dolores Galicia PA-C allopurinol 200 mg PO DAILY B-complex with vitamin C 1 cap PO DAILY colchicine mg PO conjugated estrogens (Premarin) 0.625 mg PO DAILY furosemide 20 mg PO Q OTHER DAY lisinopril 10 mg PO DAILY [mini fish oil 1290 PO] multivitamin 1 tab PO DAILY phentermine 15 mg PO DAILY vitamin D3-vitamin K2 250 mcg (10,000 unit)-45 mcg 1 cap PO DAILY Tobacco use date assessed: 04/14/25 Fall risk assessment: No Falls in past year Last assessed Fall Risk: 04/14/25 Dental Screening Dental Screen Date: 03/10/25 HPI med check HPI Details Patient is a 64-year-old female who presents today for a follow up. She has a history of hypertension, prediabetes, CKD, kidney stones, anemia, gout, obesity. General: has not yet tried phentermine. SHe is trying IF CV: Blood pressure today in the office is 130/88. She is on lisinopril 10 mg daily. She uses furosemide as needed for swelling. States that cholesterol has been diet controlled. Endo: Last labs showed A1c of 5.7. Heme: Follows with Dr. Ac for anemia. Nephro: She did see nephrology, Dr. Avery, following an maria g from being on keto diet and possibly due to stones but did not like him and does not want to follow with that practice. Recent labs showed stable GFR with significant microalbuminuria Urology: hx of stones, has not seen urology in over 30 years. Does not wish to see anyone. Psych: Was trialed on trazodone in the past to see if that would help with insomnia which she felt was related to her menopause. Vasc: seeing vein center for varicose veins but is not going to treat this at this point as it is very expensive. High deductible plan. Mammo: UTD Supervisor Estimator And Drafter: UTD Bone density: was normal 3 years ago Colonoscopy: completed 2020-due in 2030 [facility] Medical History (Updated 03/10/25 @ 11:08 by Dolores Galicia PA-C) Umbilical hernia Surgical History Hx of cholecystectomy Family History Mother HTN (hypertension) Father HTN (hypertension) Maternal Grandmother Diabetes Social History (Updated 04/14/25 @ 13:40 by Rosy Lopes CMA) Housing: House Alcohol intake: current Patient Tobacco Use Status: Never used Tobacco e-Cigarette/Vaping Use: Never Used Second Hand Smoke Exposure: No Use of substances other than those prescribed or required for medical reasons: No service: No Current occupational status: retired Cognitive needs: No Hearing needs: No Vision needs: No Questionnaire Thrive Questionnaire Date Thrive assessed: 03/03/25 I am a: Patient What is your living situation today?: I have a steady place to live Within the past 12 months, did the food you bought not last and you didn't have the money to get more?: Never true Within the past 12 months, did you worry whether your food would run out before you got money to buy more?: Never true Do you have trouble paying for medicines?: No Do you have trouble getting transportation to medical appointments?: Yes Do you have trouble paying your heating and electricity bill?: No Do you have trouble taking care of your child, family member or friend?: No Do you have trouble with day-to-day activities such as bathing, preparing meals, shopping, managing finances, etc.?: No Are you currently unemployed and looking for a job?: No Are you interested in more education?: Yes Please select the resources that you would like help with: None Currently or been in a relationship where the following occur: No concerns reported THRIVE Score: 1 AUDIT C Alcohol Use Questionnaire (AUDIT-C) 1. How often do you have a drink containing alcohol?: Monthly or less 2. How many drinks containing alcohol do you have on a typical day when you are drinking?: 1 or 2 3. How often do you have six or more drinks on one occasion?: Never Total Score: 1 BAKARI-7 AMB Questionnaire BAKARI-7 Date BAKARI - 7 assessed: 03/10/25 Source: Developed by Drs. Edgardo Hough, Whit Diaz, David Amos and colleagues, with an educational allison from [employer]. Physical exam (Primary Care) Vital Signs: Last Vital Signs Pulse 83 04/14/25 11:25 Resp 14 04/14/25 11:25 BP 130/88 04/14/25 11:25 Pulse Ox 98 04/14/25 11:25 Oxygen Delivery Method Room Air 04/14/25 11:25 BMI result Body Mass Index 35.6 Tobacco/Smoking Status: Tobacco use Status Tobacco use date assessed 04/14/25 04/14/25 13:40 Patient Tobacco Use Status Never used Tobacco 04/14/25 11:22 e-Cigarette/Vaping Use Never Used 04/14/25 11:22 Thrive Assessment: Date of Thrive Assessment Date Thrive assessed 03/03/25 04/14/25 11:22 Currently or been in a relationship where the following occur: No concerns reported Const Orientation/consciousness: patient oriented x3 HENMT Ears: hearing grossly normal bilaterally Neck Thyroid: Thyroid normal Lymphatic: no lymphadenopathy noted Resp Auscultation: clear to auscultation bilaterally Cardio Rate: regular rate Rhythm: regular rhythm Heart sounds: S1 normal heart sound present and S2 normal heart sound present Skin General skin exam: no rashes or lesions noted Neuro General: patient oriented x3, gait normal and no focal motor deficits Results Reviewed Results Reviewed: US renal Comparison: None Findings: Right kidney 12.0 cm length. Left kidney 12.3 cm length. Multiple nonobstructing renal stones. No bilateral hydronephrosis. Normal bilateral renal echogenicity. Impression: Nonobstructing bilateral renal stones Laboratory Tests 03/16/25 03/16/25 08:51 08:57 WBC 7.8 RBC 4.31 Hgb 12.3 Hct 38.9 Plt Count 340 Sodium 137 Potassium 4.3 Chloride 103 Carbon Dioxide 27 Anion Gap 11 L BUN 17 H Creatinine 1.21 Estim Creat Clear Calc Not Reportable Estimated GFR 45 Fasting Glucose 98 Estimat Average Glucose 117 Hemoglobin A1c % 5.7 Calcium 8.9 Total Bilirubin 0.3 AST 19 ALT 12 Alkaline Phosphatase 86 Total Protein 6.9 Albumin 3.8 Triglycerides 207 H Cholesterol 195 LDL Cholesterol, Calc 91 HDL Cholesterol 63 Vitamin B12 423 Folate 14.0 TSH 1.02 Urine Protein 100 (2+) H Urine Creatinine 59.89 Urine Microalbumin 192.0 Microalb/Creat Ratio 320.5 H Coding Level of Care Code Est Pt Level 4 (26440) Complex EM visit Add On G2211 Diagnoses CKD (chronic kidney disease) stage 3, GFR 30-59 ml/min N18.30 HTN (hypertension) I10 Prediabetes R73.03 Severe obesity (BMI 35.0-35.9 with comorbidity) E66.01; Z68.35 Assessment & Plan Assessment & Plan (1) CKD (chronic kidney disease) stage 3, GFR 30-59 ml/min: Code(s): N18.30 - Chronic kidney disease, stage 3 unspecified Category: Medical Plan: Referral to nephrology. Advised to avoid NSAIDs. (2) HTN (hypertension): Code(s): I10 - Essential (primary) hypertension Category: Medical Plan: Continue current regimen (3) Prediabetes: Code(s): R73.03 - Prediabetes Category: Medical Plan: Stable. (4) Severe obesity (BMI 35.0-35.9 with comorbidity): Code(s): E66.01 - Morbid (severe) obesity due to excess calories; Z68.35 - Body mass index [BMI] 35.0-35.9, adult Category: Medical Plan: Working on intermittent fasting. Has not yet started phentermine. Orders: Orders Comprehensive [place]. Panel Fast 04/14/25 E66.01 - Morbid (severe) obesity due to excess calories, I10 - Essential (primary) hypertension, N18.30 - Chronic kidney disease, stage 3 unspecified, R73.03 - Prediabetes, Z68.35 - Body mass index [BMI] 35.0-35.9, adult TSH reflex Free T4 04/14/25 E66.01 - Morbid (severe) obesity due to excess calories, I10 - Essential (primary) hypertension, N18.30 - Chronic kidney disease, stage 3 unspecified, R73.03 - Prediabetes, Z68.35 - Body mass index [BMI] 35.0-35.9, adult UA CC w/rflx Micro + Cult 04/14/25 E66.01 - Morbid (severe) obesity due to excess calories, I10 - Essential (primary) hypertension, N18.30 - Chronic kidney disease, stage 3 unspecified, R73.03 - Prediabetes, Z13.220 - Encounter for screening for lipoid disorders, Z68.35 - Body mass index [BMI] 35.0-35.9, adult Comprehensive Met. Panel 04/14/25 E66.01 - Morbid (severe) obesity due to excess calories, I10 - Essential (primary) hypertension, N18.30 - Chronic kidney disease, stage 3 unspecified, R73.03 - Prediabetes, Z68.35 - Body mass index [BMI] 35.0-35.9, adult Hemoglobin A1c 04/14/25 E66.01 - Morbid (severe) obesity due to excess calories, I10 - Essential (primary) hypertension, N18.30 - Chronic kidney disease, stage 3 unspecified, R73.01 - Impaired fasting glucose, R73.03 - Prediabetes, Z68.35 - Body mass index [BMI] 35.0-35.9, adult Patient Instructions: Bioma probiotics
[2025-04-14 11:25] VITALS: BP 130/88; PULSE 83; RESP 14; O2SAT 98; BMI 35.6
== END 2025-04-14 12:13 | disposition home or self-care (01) ==
LOC: HO.HMCFM 11:02
PROVIDERS: PCP Physician Assistant; Visit Provider Physician Assistant
DX: N18.30 Chronic kidney disease, stage 3 unspecified (principal); I10 Essential (primary) hypertension; R73.03 Prediabetes; E66.01 Morbid (severe) obesity due to excess calories; Z68.35 Body mass index [BMI] 35.0-35.9, adult

== ENCOUNTER → 2025-04-14 11:01 | Outpatient (BNVA) | payer BC, SELFPAY | PROVIDERS: PCP Physician Assistant; Visit Provider Physician Assistant | DX: Z13.89 Encounter for screening for other disorder (principal) ==

== ENCOUNTER 2025-05-18 15:34 | Outpatient (AMB) | payer BC, SELFPAY ==
--- NOTE | 2025-05-18 15:29 | MHC.PC.OV ---
Intake Visit Reasons: medication change Intake Note: Request changing medication. Matrix Bath Operator Required: No Allergies sumatriptan (From Imitrex) Allergy (Intermediate, Verified 05/18/25 15:30) vomitted Medication List - Last Reconciled 05/18/25 by Dolores Galicia PA-C allopurinol 200 mg PO DAILY B-complex with vitamin C 1 cap PO DAILY colchicine mg PO conj estrog-medroxyprogest carlos 0.625-2.5 mg (Prempro) 1 tab PO DAILY estradiol 0.01%(0.1mg/gram) 1 g vaginal 3XW furosemide 20 mg PO Q OTHER DAY lisinopril 10 mg PO DAILY [mini fish oil 1290 PO] multivitamin 1 tab PO DAILY vitamin D3-vitamin K2 250 mcg (10,000 unit)-45 mcg 1 cap PO DAILY Tobacco use date assessed: 04/14/25 Dental Screening Dental Screen Date: 03/10/25 HPI medication change HPI Details Patient is a 64-year-old female who presents today for a follow up. She has a history of hypertension, prediabetes, CKD, kidney stones, anemia, gout, obesity. General: She is currently trying low carb and intermittent fasting. Not noticing great results yet. She has tried atkins in the past, weight watchers and NOOM. She wants to try zepbound. She is eating healthy and exercising. Tried ozmepic and did not tolerate this and had nausea with it. Does not like phentermine with dry mouth and no weight loss. CV: She is on lisinopril 10 mg daily. She uses furosemide as needed for swelling. States that cholesterol has been diet controlled. Endo: Last labs showed A1c of 5.7. Heme: Follows with Dr. Ac for anemia. Nephro: She did see nephrology, Dr. Avery, following an maria g from being on keto diet and possibly due to stones but did not like him and does not want to follow with that practice. Recent labs showed stable GFR with significant microalbuminuria Urology: hx of stones, has not seen urology in over 30 years. Does not wish to see anyone. Vasc: seeing vein center for varicose veins but is not going to treat this at this point as it is very expensive. High deductible plan. Mammo: UTD Steel Pan Form Placing Supervisor: UTD Bone density: was normal 3 years ago Colonoscopy: completed 2020-due in 2030 [facility] Medical History (Updated 03/10/25 @ 11:08 by Dolores Galicia PA-C) Umbilical hernia Surgical History Hx of cholecystectomy Family History Mother HTN (hypertension) Father HTN (hypertension) Maternal Grandmother Diabetes Social History (Updated 04/14/25 @ 13:40 by Rosy Lopes CMA) Housing: House Alcohol intake: current Patient Tobacco Use Status: Never used Tobacco e-Cigarette/Vaping Use: Never Used Second Hand Smoke Exposure: No service: No Current occupational status: retired Cognitive needs: No Hearing needs: No Vision needs: No Questionnaire Thrive Questionnaire Date Thrive assessed: 03/03/25 BAKARI-7 AMB Questionnaire BAKARI-7 Date BAKARI - 7 assessed: 03/10/25 Source: Developed by Drs. Edgardo Hough, Whit Diaz, David Amos and colleagues, with an educational allison from [employer]. Physical exam (Primary Care) Tobacco/Smoking Status: Tobacco use Status Tobacco use date assessed 04/14/25 05/18/25 15:32 Patient Tobacco Use Status Never used Tobacco 05/18/25 15:32 e-Cigarette/Vaping Use Never Used 05/18/25 15:32 Thrive Assessment: Date of Thrive Assessment Date Thrive assessed 03/03/25 05/18/25 15:32 Telehealth Telehealth Telehealth Platform: Telephone Location of provider rendering services: practice address Location of patient: address on file Patient Identification confirmed using: Name, : Yes Telehealth method: voice only Patient verbally consented to treatment: Yes Patient verbally consented to billing insurance company: Yes Patient informed of any privacy concerns related to visit: Yes Minutes spent on Phone/Video with Pt.: 16 Coding Level of Care Code Tele Est Pt Level 2 (65708) Diagnoses Severe obesity (BMI 35.0-35.9 with comorbidity) E66.01; Z68.35 Prediabetes R73.03 Assessment & Plan Assessment & Plan (1) Severe obesity (BMI 35.0-35.9 with comorbidity): Code(s): E66.01 - Morbid (severe) obesity due to excess calories; Z68.35 - Body mass index [BMI] 35.0-35.9, adult Category: Medical Plan: will try zepbound does not tolerate phentermine also no weight loss did not tolerate ozempic in the past (2) Prediabetes: Code(s): R73.03 - Prediabetes Category: Medical Plan: a1c stable Medications: New tirzepatide (weight loss) (Zepbound) for 4 weeks 2.5 mg (0.5 mL) subcut QWEEK 2 mL 1RF
--- OUTSIDE RECORDS SUMMARY | 2025-05-18 16:11 | XMS_ITS | Patient Health Record ---
Author Organization [facility] Address [address] [facility] [address] [place] [address] Care Team Providers Care Utilization Review Coordinator Name Role Phone Lissette Stevens Primary Care [...] Active Lactobacillus - as directed Orally Not-Taking Bryan 3 1000 MG 1 capsule Orally Once a day Active Estrogens Conjugated 0.45 MG 1 tablet Or ally Once a day Active Indomethacin 50 MG 1 capsule with food or milk Orally Twice a day; Duration: 30 days Active Vitamin D Active Allopurinol 300 MG TAKE 1 TABLET BY MOUTH EVERY DAY Orally Once a day; Duration: 90 days Active Ferrous Sulfate 325 (65 Fe) MG TAKE 1 TABLET BY MOUTH EVERY DAY FOR 30 DAYS; Duration: 90 Active Colchicine 0.6 MG PLEASE TAKE ONE TABLET ORALLY TWICE A DAY FOR 5 DAYS; Duration: 5 Active Multi Vitamin/Minerals - as directed Orally Active Naproxen 500 MG 1 tablet with food or milk as needed Orally every 12 hrs Active predniSONE 10 MG 1 tablet Orally Once a day Not-Taking Lisinopril 20 MG 1 tablet Orally Once a day Active Problems Problem Type SNOMED Code ICD Code Onset Dates Problem Status W/U Status Risk Notes Problem Peripheral vascular disease (050242197) Other specified peripheral vascular diseases (I73.89) Active confirmed Problem Inflammatory arthritis (5615986) Inflammatory arthritis (M19.90) Active confirmed Plan Of Treatment Pending Test Test Name Order Date X ray : Foot, left 3v 09/25/2023 X ray : Foot, right 3v 09/25/2023 DRAIN/INJECT, SMALL JOINT/BURSA 09/25/20 23 Medications Administered Medication Instructions Date of [...] + COVID 03/2022 COVID vaccinated X 3 (Pfizer) heel spur onychomycosis hypertension back pain circulation issues Surgical History Surgery Date(Month/Year) cholecystectomy umbilical hernia repair Hospitalization History Reason Date(Month/Year) vaginal delivery (girl) 1997 vaginal delivery (girl) 1988 vaginal delivery (boy) 1985
--- OUTSIDE RECORDS SUMMARY | 2025-05-18 16:11 | XMS_ITS | Clinical Summary ---
Author Organization [facility] Address [address] [address] Phone Care Team Providers Care Tax Attorney Name Role Phone Abdi Faye MD Primary [...] Colorectal Cancer Screening: Sigmoidoscopy 2009 Influenza Vaccine (#1) 2025 , 08/14/2022, 11/07/2021 Hepatitis B Vaccine Aged Out No longe r eligible based on patient's age to complete this topic Insurance [facility] Care Teams Tax Attorney Relationship Specialty Start Date End Date Abdi Faye MD [address] [place] [id number] PCP - General Internal Medicine 07/28/24
--- OUTSIDE RECORDS SUMMARY | 2025-05-18 16:11 | XMS_ITS | Continuity of Care Document ---
Author Organization [facility] Address [address] [facility] [address] [place] [address] Insurance Providers Payer Plan Claims Address Claims Phone Policy Number Group Number Relation Employer Guarantor Name Guarantor Guarantor Address Guarantor Phone [employer] [place] kit tts [address], [place] [address] tel:[phone] Self Aster Lloyd 1960 [address] [place] [address] [place]/ [place] /PPO POS 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 Refere nce Range Comp. Metabolic Panel (14)[3 [id number]] Collected: 12/21/2024 04:58 PM Specimen Received: 12/21/2024 05:00 AM Source: [facility] Glucose [[id number]] 12/22/2024 04:07 AM 99 mg/dL 70-99 mg/dL BUN [[id number]] 12/22/2024 04:08 AM 14 mg/dL 8-2 7 mg/dL Creatinine [716645] 12/22/2024 04:08 AM 1.15 mg/dL H 0.57-1.00 mg/dL eGFR [[id number]] 12/22/2024 04:08 AM 53 mL/min/1.73 L >59 mL/min/1.73 BUN/Creatinine Ratio [701553] 12/22/2024 04:08 AM 12 12-28 Sodium [022309] 12/22/2024 04:11 AM 136 mmol/L 134-144 mmol/L Potassium [111490] 12/22/2024 04:15 AM 4.7 mmol/L 3.5-5.2 mmol/L Chloride [019432] 12/22/2024 04:11 AM 98 mmol/L 96-106 mmol/L Carbon Dioxide, Total [129149] 12/22/2024 04:07 AM 24 mmol/L 20-29 mmol/L Calcium [148659] 12/22/2024 04:07 AM 9.2 mg/dL 8.7-10.3 mg/dL Protein, Total [853443] 12/22/2024 04:10 AM 6.8 g/dL 6.0-8.5 g/dL Albumin [657135] 12/22/2024 04:08 AM 4.1 g/dL 3.9-4.9 g/dL Globulin, Total [717668] 12/22/2024 04:10 AM 2.7 g/dL 1.5-4.5 g/dL Bilirubin, Total [512366] 12/22/2024 04:08 AM 0.3 mg/dL 0.0-1.2 mg/dL Alkaline Phosphatase [584565] 12/22/2024 04:10 AM 101 IU/L 44-121 IU/L AST (SGOT) [261929] 12/22/2024 04:08 AM 13 IU/L 0-40 IU/L ALT (SGPT) [269481] 12/22/2024 04:09 AM 10 IU/L 0-32 IU/L Lipid Panel[[id number]] Collected: 12/21/2024 04:58 PM Specimen Received: 12/21/2024 05:00 AM Source: [facility] Cholesterol, Total [[id number]] 12/22/2024 04:20 AM 210 mg/dL H 100-199 mg/d L Triglycerides [709372] 12/22/2024 04:19 AM 203 mg/dL H 0-149 mg/dL HDL Cholesterol [158698] 12/22/2024 04:15 AM 73 mg/dL >39 mg/dL VLDL Cholesterol Abdulkadir [838692] 12/22/2024 04:20 AM 34 mg/dL 5-40 mg/dL LDL Chol Calc ([facility]) [603032] 12/22/2024 04:20 AM 103 mg/dL H 0-99 mg/dL Albumin/Creatinine Ratio,Uri ne[[id number]] Collected: 12/21/2024 04:58 PM Specimen Received: 12/21/2024 05:00 AM Source: [facility] Creatinine, Urine [[id number]] 12/22/2024 10:56 PM 55.8 mg/dL Not Estab. m g/dL Albumin, Urine [[id number]] 12/22/2024 11:02 PM 76.7 ug/mL Not Estab. ug/mL Alb/Creat Ratio [[id number]] 12/22/2024 11:02 PM 137 mg/g crea t H 0-29 mg/g creat Normal: 0 - 29 Moderately in creased: 30 - 300 Severely increased: >300 Hemoglobin A1c[[id number]] Collected: 12/21/2024 04:58 PM Specimen Received: 12/21/2024 05:00 AM Source: [facility] Hemoglobin A1c [[id number]] 12/22/2024 02:59 AM 5.7 % H 4.8-5.6 % . Prediabetes: 5.7 - 6.4 Fariha betes: >6.4 Glycemic control for adults with diabetes: 7.0 C-Peptide, Serum[[id number]] Collected: 12/21/2024 04:58 PM Specimen Received: 12/21/2024 05:00 AM Source: [facility] C-Peptide, Serum [[id number]] 12/22/2024 12:47 PM 3.1 ng/mL 1.1-4.4 ng/mL C-Peptide reference interval is for fasting patients. fax.pdf Allergies, adverse reactions, alerts No known allergies and adverse reactions Medications No administered medications reported Vital Signs No vital signs reported Social History No smoking Hx information available
--- OUTSIDE RECORDS SUMMARY | 2025-05-18 16:11 | XMS_ITS | Clinical Summary ---
Author Organization [facility] Address [address] [place] [address] Care Team Providers Care Brick Catcher Name Role Phone Abdi Faye MD Primary [...] 2,000 Units by mouth daily. 0 Active [place]-3 Fatty Acids (Fish Oil) 1360 MG CAPS [...] 79 07/30/2024 11:06 AM EDT Temperature 36.6 C (97.8 F) 07/30/2024 11:06 AM EDT Respiratory Rate - - Oxygen Saturation 99% [...] - season) 2024 01/23/2021 Influenza Vaccine (#1) 2025 , 08/02/2023, 08/14/2022, Additional history exists Pneumococcal [...] age to complete this topic Care Teams Brick Catcher Relationship Specialty Start Date End Date Abdi Faye MD [address] [facility] [place] [address] PCP - General Internal Medicine 07/30/24
--- OUTSIDE RECORDS SUMMARY | 2025-05-18 16:12 | XMS_ITS ---
Author Name [facility] Organization Unknown Care Team Organization Name Specialty Phone Email Start Date End Da te [facility] Levon [facility] 10/01/2023 06/07/20 [facility] Evelyn, PROVIDER Primary Care 08/27/202205/20
--- OUTSIDE RECORDS SUMMARY | 2025-05-18 16:12 | XMS_ITS | Continuity of Care Document ---
Author Organization [facility] Address [address] [facility] [address] [place] [address] Insurance Providers Payer Plan Claims Address Claims Phone Policy Number Group Number Relation Employer Guarantor Name Guarantor Guarantor Address Guarantor Phone [employer] [place] [employer] t[employer] [address], [place] [address] tel:[phone] Self Aster Lloyd 1960 [address] [place] [address] [place]/ [place] /PPO POS 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 Refere nce Range Comp. Metabolic Panel (14)[3 [id number]] Collected: 12/21/2024 04:58 PM Specimen Received: 12/21/2024 05:00 AM Source: [facility] Glucose [[id number]] 12/22/2024 04:07 AM 99 mg/dL 70-99 mg/dL BUN [[id number]] 12/22/2024 04:08 AM 14 mg/dL 8-2 7 mg/dL Creatinine [[id number]] 12/22/2024 04:08 AM 1.15 mg/dL H 0.57-1.00 mg/dL eGFR [412536] 12/22/2024 04:08 AM 53 mL/min/1.73 L >59 mL/min/1.73 BUN/Creatinine Ratio [644403] 12/22/2024 04:08 AM 12 12-28 Sodium [354031] 12/22/2024 04:11 AM 136 mmol/L 134-144 mmol/L Potassium [840108] 12/22/2024 04:15 AM 4.7 mmol/L 3.5-5.2 mmol/L Chloride [803991] 12/22/2024 04:11 AM 98 mmol/L 96-106 mmol/L Carbon Dioxide, Total [289156] 12/22/2024 04:07 AM 24 mmol/L 20-29 mmol/L Calcium [[id number]] 12/22/2024 04:07 AM 9.2 mg/dL 8.7-10.3 mg/dL Protein, Total [332181] 12/22/2024 04:10 AM 6.8 g/dL 6.0-8.5 g/dL Albumin [718876] 12/22/2024 04:08 AM 4.1 g/dL 3.9-4.9 g/dL Globulin, Total [713751] 12/22/2024 04:10 AM 2.7 g/dL 1.5-4.5 g/dL Bilirubin, Total [483282] 12/22/2024 04:08 AM 0.3 mg/dL 0.0-1.2 mg/dL Alkaline Phosphatase [438914] 12/22/2024 04:10 AM 101 IU/L 44-121 IU/L AST (SGOT) [785935] 12/22/2024 04:08 AM 13 IU/L 0-40 IU/L ALT (SGPT) [525405] 12/22/2024 04:09 AM 10 IU/L 0-32 IU/L Lipid Panel[[id number]] Collected: 12/21/2024 04:58 PM Specimen Received: 12/21/2024 05:00 AM Source: [facility] Cholesterol, Total [[id number]] 12/22/2024 04:20 AM 210 mg/dL H 100-199 mg/d L Triglycerides [[id number]] 12/22/2024 04:19 AM 203 mg/dL H 0-149 mg/dL HDL Cholesterol [[id number]] 12/22/2024 04:15 AM 73 mg/dL >39 mg/dL VLDL Cholesterol Abdulkadir [[id number]] 12/22/2024 04:20 AM 34 mg/dL 5-40 mg/dL LDL Chol Calc ([facility]) [[id number]] 12/22/2024 04:20 AM 103 mg/dL H 0-99 mg/dL Albumin/Creatinine Ratio,Uri ne[[id number]] Collected: 12/21/2024 04:58 PM Specimen Received: 12/21/2024 05:00 AM Source: [facility] Creatinine, Urine [[id number]] 12/22/2024 10:56 PM 55.8 mg/dL Not Estab. m g/dL Albumin, Urine [[id number]] 12/22/2024 11:02 PM 76.7 ug/mL Not Estab. ug/mL Alb/Creat Ratio [[id number]] 12/22/2024 11:02 PM 137 mg/g crea t H 0-29 mg/g creat Normal: 0 - 29 Moderately in creased: 30 - 300 Severely increased: >300 Hemoglobin A1c[[id number]] Collected: 12/21/2024 04:58 PM Specimen Received: 12/21/2024 05:00 AM Source: [facility] Hemoglobin A1c [[id number]] 12/22/2024 02:59 AM 5.7 % H 4.8-5.6 % . Prediabetes: 5.7 - 6.4 Fariha betes: >6.4 Glycemic control for adults with diabetes: 7.0 C-Peptide, Serum[[id number]] Collected: 12/21/2024 04:58 PM Specimen Received: 12/21/2024 05:00 AM Source: [facility] C-Peptide, Serum [[id number]] 12/22/2024 12:47 PM 3.1 ng/mL 1.1-4.4 ng/mL C-Peptide reference interval is for fasting patients. fax.pdf Allergies, adverse reactions, alerts No known allergies and adverse reactions Medications No administered medications reported Vital Signs No vital signs reported Social History No smoking Hx information available
--- OUTSIDE RECORDS SUMMARY | 2025-05-18 16:12 | XMS_ITS | Clinical Summary ---
Author Organization [facility] Address [address] [place] [address] Care Team Providers Care Account Group Supervisor Name Role Phone Abdi Faye MD [...] Panel) 09/28/2022 Colorectal Cancer Screening: Colonoscopy 09/28/2022 HIV Screening 09/28/2022 Hepatitis C Screening 09/28/2022 Social Influencers of Health Screening 09/28/2022 Hypertension/CHF/CAD Annual BMP Blood Test 09/29/2022 COVID-19 Vaccine (3 - 2023-2 5 season) 2024 10/07/2021, 01/23/2021 Depression Screening 10/20/2024 Cervical Cancer Screening: P ap Smear 04/24/2025 04/24/2022 Influenza Vaccine (#1) 2025 3, 08/14/2022, 11/07/2021 RSV Immunization Adult Patients (1 [...] RESULTING AGENCY - 04/30/2022 4:41 PM EDT [id number] THINPREP PAP, IMAGED: NEGATIVE FOR SQUAMOUS INTRAEPITHELIAL LESION AND MALIGNANCY . ADRIEL FRANCISCO(ASCP) (CASE ELECTRONICALLY SIGNED 04 30 2022) RESULT OF APTIMA HIGH RISK HPV ASSAY: HIGH RISK HPV: NEGATIVE (SEROTYPES 16,18,31,33,35,39,45,51,52,56,58,59,66,68) COMPLETED ON 2022-04-26 ADEQUACY: SATISFACTORY ENDOCERVICAL/TRANSFORMATION ZONE COMPONENT PRESENT. SOURCE: THINPREP PAP HPV ANY DX: REFLEX 16 AND 18, CERVICAL, IMAGED CLINICAL INFORMATION: [...] reviewed with CAD and compared to previous. The breasts are composed of fatty [...] risk category Low (<15%) Procedure Note [place] Varela DO - 11/21/2023 This is a summary [...] Recently Relevant to Health Maintenance Care Teams Account Group Supervisor Relationship Specialty Start Date End Date Abdi Faye MD [address] [place] [address] [place] PCP - General 08/03/24
== END 2025-05-19 11:40 | disposition home or self-care (01) ==
LOC: HO.HMCFM 15:34
PROVIDERS: PCP Physician Assistant; Visit Provider Physician Assistant
DX: R73.03 Prediabetes (principal); E66.01 Morbid (severe) obesity due to excess calories; Z68.35 Body mass index [BMI] 35.0-35.9, adult

== ENCOUNTER → 2025-05-18 15:34 | Outpatient (BNVA) | payer BC, SELFPAY | PROVIDERS: PCP Physician Assistant; Visit Provider Physician Assistant | DX: E66.01 Morbid (severe) obesity due to excess calories (principal); Z68.35 Body mass index [BMI] 35.0-35.9, adult; R73.03 Prediabetes; I12.9 Hypertensive chronic kidney disease with stage 1 through stage 4 chronic kidney disease, or unspecified chronic kidney disease; N18.9 Chronic kidney disease, unspecified; Z79.899 Other long term (current) drug therapy | CPT/HCPCS: 98967 ==